=== PATIENT | male | born 1990 ===

== ENCOUNTER → 2018-06-07 | Outpatient (REF) | payer OTHER ==
[2018-06-07 12:42] LABS: SEMEN APPEARANCE OPAQUE (OPAQUE); SEMEN VISCOSITY LIQUID (LIQUID); SEMEN VOLUME 3.1 ml (4.0-5.0)
[2018-06-07 12:43] LABS: % NORMAL FORMS 13 % (>=4); IMMOTILITY 34 %; NON PROGRESSIVE MOTILITY (c) 15 %; PROGRESSIVE MOTILITY (a) 51 % (>=32); SPERM CONCENTRATION 36.6 M/ml (>=15.0); SPERM# 113.3 M/Ejac (>=39); TOTAL MOTILITY 66 % (>=40); TOTAL PROGRESSIVE SPERM 58.2 M/Ejac.; WBC CONCENTRATION >1 M/ml (<=1 M/ml)
[2018-06-07 12:44] LABS: TOTAL FUNCTIONAL 16.4 M/Ejac.
== END ==
LOC: M LAB REF 11:48
DX: N46.9 Male infertility, unspecified (principal)